=== PATIENT | male | born 1975 ===

== ENCOUNTER 2020-10-18 17:02 | Inpatient (IN) | payer MEDICAID ==
[~2020-10-18] VITALS: Ht 170.2 cm; Wt 87.5 kg
[2020-10-18] MEDS ORDERED: cloNIDine HCL 0.1 MG TAB PO ONE (17:30)
[2020-10-18] MEDS ORDERED: ASPirin 81 mg TAB PO ONE (17:30)
[2020-10-18 17:48] LABS: Basophils # (auto) 0.1 10 ^3/uL (0-0.2); Hemoglobin 15.4 g/dL (13.5-17.5); Lymphocytes # (auto) 2.8 10 ^3/uL (0.4-5.4); Neutrophils # (auto) 3.7 10 ^3/uL (1.6-8.6); White Blood Cell 7.6 10^3/uL (4.4-10.8)
[2020-10-18 17:50] LABS: Eosinophils # (auto) 0.5 10 ^3/uL (0-0.8); Hematocrit 43.8 % (41.0-53.0); Lymphocytes % (auto) 36.6 % (10.0-50.0); Mean Corpuscular Hgb Conc. 35.1 g/dL (32.0-36.0); Mean Corpuscular Volume 102.5 fL (80.0-100.0); Monocytes # (auto) 0.6 10 ^3/uL (0-1.3); Monocytes % (auto) 7.4 % (0.0-12.0); Nucleated Red Blood Cells % 0.1 %; Red Blood Cells 4.27 10^6/uL (4.5-5.90); Red Cell Distribution Width 13.8 % (11.8-14.3)
[2020-10-18 18:06] LABS: Albumin 3.4 g/dL (3.4-5.0); Anion Gap 7 (5-15); Blood Urea Nitrogen 7 mg/dL (7-18); Calcium 8.8 mg/dL (8.5-10.1); Carbon Dioxide 21 mmol/L (21-32); Chloride 107 mmol/L (98-107); Glucose 95 mg/dL (74-106); Potassium 3.4 mmol/L (3.5-5.1); Sodium 135 mmol/L (136-145)
[2020-10-18 18:15] LABS: Alanine Aminotransferase 43 U/L (16-61); Alkaline Phosphatase 86 U/L (45-117); Aspartate Aminotransferase 35 U/L (15-37); BUN/Creatinine Ratio 8.2; Bilirubin, Total 0.7 mg/dL (0.2-1.0); GFR African American 124 mL/min; GFR Non-African American 103 mL/min; Total Protein 7.7 g/dL (6.4-8.2)
[2020-10-18] MEDS ORDERED: DOCUSATE CALCIUM 240 MG CAP PO PRN (20:00)
[2020-10-18] MEDS ORDERED: LORazepam 0.5 MG TAB PO PRN (20:00)
[2020-10-18] MEDS ORDERED: ONDANSETRON HCL 4 MG/2 ML VIAL IV PRN (20:00)
[2020-10-18] MEDS ORDERED: ACETAMINOPHEN 500 MG TAB PO PRN (20:00)
[2020-10-18] MEDS ORDERED: SODIUM CHLORIDE 0.9% 1,000 ML IV ONE (20:00)
[2020-10-18] MEDS ORDERED: NITROGLYCERIN 0.4 MG SL TAB SL PRN (20:00)
[2020-10-18] MEDS ORDERED: POTASSIUM EFFERVESENT TAB 25 MEQ PO ONE (20:00)
[2020-10-18] MEDS ORDERED: MORPHINE SULFATE INJECTION 2 MG/ML SYRG IV PRN ×2 (20:00)
[2020-10-18] MEDS ORDERED: IOHEXOL 350 MG/ML 100ML IJ ONE (21:24)
[2020-10-18] MEDS: hydrALAZINE HCL 20 MG/ML VL IV PRN (22:47)
[2020-10-19] MEDS: BUDESONIDE (INHALATION) 0.5 MG/2 ML NEB NEB SCH ×3 (00:18→20:03)
[2020-10-19] MEDS: IPRATROPIUM BROM 0.5 MG/2.5ML INH SOL NEB PRN ×4 (00:18→20:03)
[2020-10-19] MEDS: ALBUTEROL SULF 2.5 MG/0.5ML(0.5%) NEB SOLN NEB PRN ×4 (00:18→20:04)
[2020-10-19] MEDS: SODIUM CHLORIDE 0.9% 1,000 ML IV SCH ×3 (00:31→16:22)
[2020-10-19 01:57] LABS: Eosinophils # (auto) 0.5 10 ^3/uL (0-0.8); Hemoglobin 15.4 g/dL (13.5-17.5); Lymphocytes # (auto) 2.6 10 ^3/uL (0.4-5.4); Monocytes # (auto) 0.5 10 ^3/uL (0-1.3); Neutrophils # (auto) 2.5 10 ^3/uL (1.6-8.6); Neutrophils % (auto) 40.7 % (37.0-80.0); Nucleated Red Blood Cells % 0.1 %
[2020-10-19 01:59] LABS: Basophils # (auto) 0 10 ^3/uL (0-0.2); Basophils % (auto) 0.7 % (0.0-2.0); Lymphocytes % (auto) 42.8 % (10.0-50.0); Mean Corpuscular Hemoglobin 37.3 pg (28.0-32.0); Mean Corpuscular Hgb Conc. 35.8 g/dL (32.0-36.0); Mean Corpuscular Volume 104.1 fL (80.0-100.0); Monocytes % (auto) 7.8 % (0.0-12.0); Red Blood Cells 4.13 10^6/uL (4.5-5.90); Red Cell Distribution Width 13.8 % (11.8-14.3)
[2020-10-19] MEDS ORDERED: ALBU108A5 IN (04:48)
[2020-10-19] MEDS ORDERED: LOSA25TA38 PO (04:48)
[2020-10-19] MEDS ORDERED: METO-158 PO (04:48)
[2020-10-19 05:00] VITALS: BP 155/98
[2020-10-19] MEDS ORDERED: PNEUMOCOCCAL VACC POLYS 25 MCG/0.5 ML VIAL IM ONE (06:00)
[2020-10-19 09:00] VITALS: BP 162/98
[2020-10-19] MEDS: PANTOPRAZOLE 40 MG TAB PO SCH (09:35)
[2020-10-19] MEDS: METOPROLOL SUCCINATE XL 50 MG TAB PO SCH (09:36)
[2020-10-19] MEDS: ENOXAPARIN SOD 40 MG/0.4 ML SYRINGE SC SCH (09:40)
[2020-10-19 09:57] LABS: INR 1.07 (0.9-1.15)
[2020-10-19 10:00] LABS: Albumin 3.6 g/dL (3.4-5.0); Anion Gap 5 (5-15); Blood Urea Nitrogen 5 mg/dL (7-18); Calcium 9.1 mg/dL (8.5-10.1); Carbon Dioxide 25 mmol/L (21-32); Chloride 111 mmol/L (98-107); Glucose 89 mg/dL (74-106); Potassium 3.9 mmol/L (3.5-5.1); Sodium 141 mmol/L (136-145)
[2020-10-19] MEDS ORDERED: METOPROLOL SUCCINATE XL 50 MG TAB PO SCH (10:00)
[2020-10-19 10:06] LABS: Alanine Aminotransferase 43 U/L (16-61); Alkaline Phosphatase 95 U/L (45-117); Aspartate Aminotransferase 36 U/L (15-37); BUN/Creatinine Ratio 6.1; Bilirubin, Total 1.1 mg/dL (0.2-1.0); GFR African American 130 mL/min; GFR Non-African American 107 mL/min; Total Protein 8.1 g/dL (6.4-8.2)
[2020-10-19] MEDS ORDERED: ALPRAZolam 0.5 MG TAB PO PRN (12:30)
[2020-10-19] MEDS ORDERED: NICOTINE 21MG/24 HR TOPICAL PATCH TD ONE (12:30)
[2020-10-19 13:00] VITALS: BP 148/92
[2020-10-19 16:41] VITALS: BP 145/96
[2020-10-19 22:00] VITALS: BP 152/94
[2020-10-19] MEDS ORDERED: traZODone HCL 50 MG TAB PO SCH (22:00)
[2020-10-19] MEDS: hydrALAZINE HCL 20 MG/ML VL IV PRN (22:38)
[2020-10-20] MEDS: SODIUM CHLORIDE 0.9% 1,000 ML IV SCH ×2 (03:41→12:15)
[2020-10-20 05:00] VITALS: BP 153/87
[2020-10-20] MEDS: hydrALAZINE HCL 20 MG/ML VL IV PRN (06:07)
[2020-10-20 06:14] LABS: Basophils # (auto) 0 10 ^3/uL (0-0.2); Hemoglobin 13.8 g/dL (13.5-17.5); Lymphocytes # (auto) 1.6 10 ^3/uL (0.4-5.4); Monocytes # (auto) 0.5 10 ^3/uL (0-1.3); Neutrophils # (auto) 3.5 10 ^3/uL (1.6-8.6); Red Cell Distribution Width 13.8 % (11.8-14.3)
[2020-10-20 06:16] LABS: Basophils % (auto) 0.7 % (0.0-2.0); Eosinophils # (auto) 0.3 10 ^3/uL (0-0.8); Eosinophils % (auto) 5.8 % (0.0-7.0); Lymphocytes % (auto) 26.5 % (10.0-50.0); Mean Corpuscular Hemoglobin 36.6 pg (28.0-32.0); Mean Corpuscular Hgb Conc. 35.5 g/dL (32.0-36.0); Mean Corpuscular Volume 103.1 fL (80.0-100.0); Monocytes % (auto) 8.9 % (0.0-12.0); Neutrophils % (auto) 58.1 % (37.0-80.0); Red Blood Cells 3.79 10^6/uL (4.5-5.90)
[2020-10-20 06:25] LABS: Potassium 3.4 mmol/L (3.5-5.1)
[2020-10-20 06:34] LABS: Albumin 2.6 g/dL (3.4-5.0); BUN/Creatinine Ratio 11.1; Calcium 8.1 mg/dL (8.5-10.1); Magnesium 2.1 mg/dL (1.6-2.6)
[2020-10-20 06:36] LABS: Bilirubin, Total 1.2 mg/dL (0.2-1.0); Total Protein 6.5 g/dL (6.4-8.2)
[2020-10-20] MEDS: BUDESONIDE (INHALATION) 0.5 MG/2 ML NEB NEB SCH (06:57)
[2020-10-20 09:00] VITALS: BP 156/89
[2020-10-20] MEDS: ENOXAPARIN SOD 40 MG/0.4 ML SYRINGE SC SCH (10:00)
[2020-10-20] MEDS ORDERED: NICOTINE 21MG/24 HR TOPICAL PATCH TD SCH (10:00)
[2020-10-20] MEDS: PANTOPRAZOLE 40 MG TAB PO SCH (10:03)
[2020-10-20] MEDS: METOPROLOL SUCCINATE XL 50 MG TAB PO SCH (10:04)
[2020-10-20 13:00] VITALS: BP 154/98
[2020-10-20 13:46] VITALS: BP 156/89
== END 2020-10-20 15:15 | disposition home or self-care (01) | DRG 199 ==
LOC: EDBD 17:02 → ER 17:02 → TELE 19:48 → TELE-WESTW 10-19 03:55
PROVIDERS: ADMIT Family Medicine; ATTEND Internal Medicine
DX: I16.0 Hypertensive urgency (principal); E87.6 Hypokalemia; I48.0 Paroxysmal atrial fibrillation; F17.210 Nicotine dependence, cigarettes, uncomplicated; R07.89 Other chest pain; J44.9 Chronic obstructive pulmonary disease, unspecified; F41.9 Anxiety disorder, unspecified; M25.511 Pain in right shoulder; G89.29 Other chronic pain; Z82.3 Family history of stroke; Z88.6 Allergy status to analgesic agent; Z91.14 Patient's other noncompliance with medication regimen; Z88.8 Allergy status to other drugs, medicaments and biological substances; Z20.822 Contact with and (suspected) exposure to COVID-19
CPT/HCPCS: 36415; 71045; 71275; 73030; 80053; 80061; 83735; 83880; 84443; 84484; 85025; 85610; 87426; 93005; 93306; 94640; 96360; G0378